=== PATIENT | female | born 1955 | race Caucasian/White ===

== ENCOUNTER 2017-07-24 12:41 | Observation (INO) ==
[2017-07-24 13:44] LABS: Basophils % 0.5 %; Eosinophils # 0.1 K/mcL (0.0-0.6); Eosinophils % 1.6 %; Hemoglobin 14.7 g/dL (11.5-15.4); Immature Granulocytes % 0.3 % (0-4); Lymphocytes # 1.7 K/mcL (0.6-4.6); Lymphocytes % 26.1 %; Mean Corpuscular HGB Conc 33.4 g/dL (31.6-35.5); Mean Corpuscular Hemoglobin 30.2 pg (28.0-33.3); Mean Corpuscular Volume 90.3 fL (83.0-100.0); Mean Platelet Volume 9.4 fL (9.4-12.4); Monocytes # 0.4 K/mcL (0.0-1.3); Monocytes % 6.5 %; Neutrophils # 4.2 K/mcL (1.6-8.9); Platelet Count 297 K/mcL (140-400); Red Blood Count 4.87 M/mcL (3.82-4.97); Red Cell Distribution Width 12.7 % (11.5-14.5)
--- NOTE | 2017-07-24 13:47 | Emergency Department Note ---
Disposition Clinical Impression: Vertigo Chest pain Qualifiers: Chest pain type: unspecified Qualified Code(s): R07.9 - Chest pain, unspecified Disposition: Admitted As Inpatient Condition: Fair Referrals: Em Hector MD [Primary Care Provider] - Forms: ED Satisfaction Letter Time of Disposition: 18:07 General Adult HPI - General Chief complaint: ED Dizziness Stated complaint: dizziness, weight-loss, multiple complaints Time Seen by Provider: 07/24/17 12:52 Source: patient, family Limitations: no limitations Nursing Notes Reviewed: Yes Vital Signs Reviewed: Yes - History of Present Illness HPI Narrative: Presents with complaints of dizziness and chest pain. The dizziness has both lightheadedness and vertigo symptoms and has been present intermittently for the last several months and she did have a time 2 weeks ago when she had difficult time with getting words out but she denies any localized numbness or weakness of the extremities, facial droop or confusion. She does not have any difficulty speaking currently or any slurred speech currently. She also had a one-hour constant heartburn symptoms last night with associated dyspnea but no diaphoresis. No radiation, pleuritic aspect, exertional component. No pain or swelling of the lower extremities. She has had rhinorrhea and cough for the last several months. I did review the previous record. No new blurred vision. No fever. No blood in the urine or stool. No skin rash or bruising of the skin. Pain Scale: 10 - Related Data Home Medications Medication Instructions Recorded Confirmed Albuterol Sulfate [Ventolin Hfa] 1 - 2 puff IH Q4-6H PRN 07/24/17 07/24/17 Aspirin 325 mg PO DAILY 07/24/17 07/24/17 Atorvastatin Calcium [Lipitor] 80 mg PO HS 07/24/17 07/24/17 Citalopram Hydrobromide [Celexa] 40 mg PO DAILY 07/24/17 07/24/17 Famotidine [Pepcid] 20 mg PO BID 07/24/17 07/24/17 Gabapentin [Neurontin] 400 mg PO TID 07/24/17 07/24/17 Metformin HCl [Glucophage] 1,000 mg PO BID 07/24/17 07/24/17 Metoprolol [Lopressor] 25 mg PO BID 07/24/17 07/24/17 Allergies Allergy/AdvReac Type Severity Reaction Status Date / Time sulfamethoxazole Allergy Hives Verified 07/24/17 12:49 [From Bactrim] trimethoprim [From Bactrim] Allergy Hives Verified 07/24/17 12:49 All systems ED: reviewed and negative except as stated. Review of Systems: As Per HPI Past Medical History - Past Medical History Medical history: Reports: coronary artery disease, diabetes, hyperlipidemia, hypertension Psychiatric history: Reports: no psych history - Social History Smoking Status: Former smoker Smokeless Tobacco Status: No Alcohol use: Reports: none Drug use: Reports: none Physical Exam CONSTITUTIONAL: Well-appearing; well-nourished; A&O X3, in no apparent distress HEAD: Normocephalic; atraumatic. EYES: PERRL, EOMI, no scleral icterus NOSE: The nose is normal in appearance without rhinorrhea NECK: Supple without rigidity, no ORIANA RESP: Normal chest excursion with respiration; breath sounds clear and equal bilaterally; no wheezes, rhonchi, or rales CARD: Regular rhythm, without murmurs, rub or gallop ABD: Non-distended; non-tender, soft, without rigidity, rebound or guarding SKIN: Normal for age and race; warm and dry; no apparent lesions, no rash NEUROLOGICAL: Patient is alert and oriented times three. Cranial nerves III- XII are intact. Sensory and motor functions are intact. Strength is 5/5 for flexion and extension in all 4 extremities. Finger to nose testing is equal and normal bilaterally. Stroke scale is 0 - General Limitations: no limitations Course Vital Signs Temperature 97.4 F L 07/24/17 12:43 Pulse Rate 83 07/24/17 12:43 Respiratory Rate 18 07/24/17 12:43 Blood Pressure 172/105 07/24/17 12:43 O2 Sat by Pulse Oximetry 97 07/24/17 12:43 Temperature 97.4 F L 07/24/17 12:43 Pulse Rate 66 07/24/17 14:27 Respiratory Rate 13 07/24/17 14:27 Blood Pressure 116/73 07/24/17 14:27 O2 Sat by Pulse Oximetry 95 07/24/17 14:27 Oxygen Delivery Oxygen Delivery Room Air Medical Decision Making - MDM Narrative Medical decision making narrative: Patient has a history of CABG and with her heartburn symptoms last night with associated dyspnea and this is concerning for angina/ACS and the patient will be admitted. Additionally she did have vertigo symptoms with difficulty speaking several weeks ago and does need further evaluation for a CVA. Test results are pending. I did review the patient's EKG which shows normal sinus rhythm with a rate of 67 without acute ischemic change. Other test results are pending. 1350 I do have 2 concerns and even with the negative head CT I am still concerned about possibility of stroke with the patient's vertiginous dizziness as well as difficulty speaking and having slurred speech and in addition she has had intermittent heartburn symptoms and with a history of CABG she will need to be further evaluated for cardiac etiology. I did discuss further with the hospitalist who accepted the patient for admission. I did see her again just a few minutes ago and she is nontoxic in appearance at this time. 1806 - Medical Records Medical records reviewed: Yes I reviewed the patient's medical records. - Lab Data Lab results reviewed: Yes I reviewed the patient's lab results. Result diagrams: 07/24/17 13:31 07/24/17 13:31 Lab Results 07/24/17 07/24/17 07/24/17 Range/Units 13:31 13:31 13:31 WBC 6.4 (4.3-11.1) K/mcL RBC 4.87 (3.82-4.97) M/mcL Hgb 14.7 (11.5-15.4) g/dL Hct 44.0 (35.3-44.9) % MCV 90.3 (83.0-100.0) fL MCH 30.2 (28.0-33.3) pg MCHC 33.4 (31.6-35.5) g/dL RDW 12.7 (11.5-14.5) % Plt Count 297 (140-400) K/mcL MPV 9.4 (9.4-12.4) fL Immature Gran % 0.3 (0-4) % Seg Neutrophils % 65.0 % Lymphocytes % 26.1 % Monocytes % 6.5 % Eosinophils % 1.6 % Basophils % 0.5 % Neutrophils # 4.2 (1.6-8.9) K/mcL Lymphocytes # 1.7 (0.6-4.6) K/mcL Monocytes # 0.4 (0.0-1.3) K/mcL Eosinophils # 0.1 (0.0-0.6) K/mcL Basophils # 0.0 (0.0-0.2) K/mcL Sodium 135 L (136-145) mEq/L Potassium 4.7 (3.5-5.1) mEq/L Chloride 100 (98-107) mEq/L Carbon Dioxide 27 (23-29) mEq/L BUN 13 (8-23) mg/dL Creatinine 0.79 (0.60-1.20) mg/dL Est GFR ( Amer) > 60 (> 60) Est GFR (Non-Af Amer) > 60 (> 60) BUN/Creatinine Ratio 16 (6-26) Glucose 161 H (70-105) mg/dL Calculated Osmolality 284 (280-300) Calcium 10.5 H (8.6-10.3) mg/dL Troponin I < 0.03 (< 0.04) ng/mL Urine Color (Yellow) Urine Clarity (Clear) Urine pH (5.0-8.0) pH Units Ur Specific [place] (1.010-1.025) Urine Protein (Neg-Trace) mg/dL Urine Glucose (UA) (Normal) mg/dL Urine Ketones (Negative) mg/dL Urine Blood (Negative) Urine Nitrite (Negative) Urine Bilirubin (Negative) Urine Urobilinogen (Normal) mg/dL Ur Leukocyte Esterase (Negative) Urine Microscopic RBC (0-3) per hpf Urine Microscopic WBC (0-3) per hpf Ur Squamous Epith Cells (None-Few) per lpf Urine Bacteria (None-Few) per hpf Hyaline Casts (None-Few) per lpf Ur Culture Indicated? (NO) 07/24/17 Range/Units 13:41 WBC (4.3-11.1) K/mcL RBC (3.82-4.97) M/mcL Hgb (11.5-15.4) g/dL Hct (35.3-44.9) % MCV (83.0-100.0) fL MCH (28.0-33.3) pg MCHC (31.6-35.5) g/dL RDW (11.5-14.5) % Plt Count (140-400) K/mcL MPV (9.4-12.4) fL Immature Gran % (0-4) % Seg Neutrophils % % Lymphocytes % % Monocytes % % Eosinophils % % Basophils % % Neutrophils # (1.6-8.9) K/mcL Lymphocytes # (0.6-4.6) K/mcL Monocytes # (0.0-1.3) K/mcL Eosinophils # (0.0-0.6) K/mcL Basophils # (0.0-0.2) K/mcL Sodium (136-145) mEq/L Potassium (3.5-5.1) mEq/L Chloride (98-107) mEq/L Carbon Dioxide (23-29) mEq/L BUN (8-23) mg/dL Creatinine (0.60-1.20) mg/dL Est GFR ( Amer) (> 60) Est GFR (Non-Af Amer) (> 60) BUN/Creatinine Ratio (6-26) Glucose (70-105) mg/dL Calculated Osmolality (280-300) Calcium (8.6-10.3) mg/dL Troponin I (< 0.04) ng/mL Urine Color Yellow (Yellow) Urine Clarity Clear (Clear) Urine pH 5.5 (5.0-8.0) pH Units Ur Specific [place] 1.025 (1.010-1.025) Urine Protein 30 H (Neg-Trace) mg/dL Urine Glucose (UA) Normal (Normal) mg/dL Urine Ketones Negative (Negative) mg/dL Urine Blood Negative (Negative) Urine Nitrite Negative (Negative) Urine Bilirubin Negative (Negative) Urine Urobilinogen Normal (Normal) mg/dL Ur Leukocyte Esterase Negative (Negative) Urine Microscopic RBC 5-15 H (0-3) per hpf Urine Microscopic WBC 3-5 H (0-3) per hpf Ur Squamous Epith Cells Many H (None-Few) per lpf Urine Bacteria None Seen (None-Few) per hpf Hyaline Casts None Seen (None-Few) per lpf Ur Culture Indicated? NO (NO) - Radiology Data Radiology results reviewed: Yes I reviewed the patient's radiology results. Critical Care Time Critical Care Time: No
[2017-07-24 14:01] LABS: BUN/Creatinine Ratio 16 (6-26); Blood Urea Nitrogen 13 mg/dL (8-23); Calcium 10.5 mg/dL (8.6-10.3); Carbon Dioxide 27 mEq/L (23-29); Chloride 100 mEq/L (98-107); Glucose 161 mg/dL (70-105); Osmolality,Calculated 284 (280-300); Potassium 4.7 mEq/L (3.5-5.1); Sodium 135 mEq/L (136-145); eGFR For Non-African Americans > 60 (> 60)
[2017-07-24 14:01] LABS: Bilirubin,Urine Negative (Negative); Blood,Urine Negative (Negative); Clarity,Urine Clear (Clear); Color,Urine Yellow (Yellow); Glucose,Urine (UA) Normal (Normal); Ketones,Urine Negative (Negative); Leukocyte Esterase,Urine Negative (Negative); Nitrite,Urine Negative (Negative); PH,Urine 5.5 pH Units (5.0-8.0); Protein,Urine 30 mg/dL (Neg-Trace); Specific Gravity,Urine 1.025 (1.010-1.025); Urobilinogen,Urine Normal (Normal)
[2017-07-24 14:03] LABS: Bacteria,Urine None Seen per hpf (None-Few); Hyaline Casts,Urine None Seen per lpf (None-Few); Squamous Epithelial Cell,Urine Many per lpf (None-Few)
[2017-07-24] MEDS ORDERED: Dextrose Gel 15 GM/37.5 ML TUBE PO PRN ×2 (18:34)
[2017-07-24] MEDS ORDERED: *HR* Dextrose 50 % in Water (Syg) 50 ML SYRINGE IVP PRN (18:34)
[2017-07-24] MEDS ORDERED: D5% in Water 1,000 ML IVC PRN (18:34)
[2017-07-24] MEDS ORDERED: Naloxone 0.4 MG/ML INJ IVP PRN (18:40)
--- NOTE | 2017-07-24 18:50 | Internal Med History&Physical ---
Date of Encounter: 07/24/17 Time of Encounter: 18:48 Assessment and Plan (1) CVA (cerebral vascular accident) Current visit: Yes Status: Acute Admitting as observation for a concern for a CVA. She presents with dizziness intermittently over the last year but reports that it is getting much worse over the last 2-weeks. Additionally, she is also having gait ataxia and drifting to the right with ambulation. PLAN: -Stat CT no hemorrhage, mass effect, acute ischemia or midline shift -MRI head/brain without contrast stat d/t concern for CVA -BL Carotid doppler -TTE now -Continue ASA -Continue Statin -CBC, BMP/CMP, Lipid panel in am -NIHSS now -Neuro checks q4hrs/per protocol -Orthostatic vital signs -Consult Neurology- spoke with Dr. Ramírez who has agreed to see the patient and has recommended we get a TSH, FOLATE, AND B12 -Heparin 5000units SC BID -CARDIAC/DIABETIC DIET Qualifiers: CVA mechanism: unspecified Qualified Code(s): I63.9 - Cerebral infarction, unspecified (2) Chest pain Current visit: Yes Status: Resolved Reports a burning sensation describing it as heartburn. She states that it lasted approximately 1 hour and resolved on it's own, however she was short of breath during this event. She also reports that this is the same sensation she has during her last [place]. H/o CAD, [place], CABG "08", HLD, HTN. D/t hx I will continue to r/o [place] PLAN: - cardiac enzymes x 2 q 6 hr - EKG NSR, no ST elevation or depression - ASA 325mg daily - O2 by NC to keep SpO2 greater than 92% - Urine toxic screen - CBCD, BMP in AM - Fasting lipids - Resume home medications - Heparin 5000 U SQ BID - 2D Echo - hold off on cardio consult until TTE and troponins result Qualifiers: Chest pain type: unspecified Qualified Code(s): R07.9 - Chest pain, unspecified (3) Vertigo Current visit: Yes Status: Acute Continues to have dizziness and lightheadedness Vertigo worse with position change, but patient also having gait ataxia This is concerning for a cerebellar infarct CT of the head is negative, no prior h/o CVA -Meclizine -see plan above (4) CAD (coronary artery disease) Current visit: Yes Status: Acute Continue ASA, and BB Tele Qualifiers: Coronary Disease-Associated Artery/Lesion type: bypass graft [place] vs. transplanted heart: [place] heart Associated angina: angina presence unspecified Qualified Code(s): I25.810 - Atherosclerosis of coronary artery bypass graft(s) without angina pectoris (5) DM (diabetes mellitus) Current visit: Yes Status: Acute sliding scale insulin coverage diabetic/cardiac diet Qualifiers: Diabetes mellitus type: type 2 Diabetes mellitus complication status: without complication Diabetes mellitus fdc insulin use: without predatory animal exterminator use Qualified Code(s): E11.9 - Type 2 diabetes mellitus without complications (6) HLD (hyperlipidemia) Current visit: Yes Status: Acute Qualifiers: Hyperlipidemia type: unspecified Qualified Code(s): E78.5 - Hyperlipidemia , unspecified (7) HTN (hypertension) Current visit: Yes Status: Acute stable Qualifiers: Hypertension type: essential hypertension Qualified Code(s): I10 - Essential (primary) hypertension (8) DVT prophylaxis Current visit: Yes Status: Acute heparin 5000 units SC BID Internal Medicine - H&P: HPI Chief complaint: DIZZINESS, SHORTNESS OF BREATH, GAIT ABNORMALITIES Admitted From: Home Plans for Post Hospital Care: Home History of present illness: Ms. Varghese is a 62 year old female with a PMH of CABG, coronary artery disease, diabetes, hyperlipidemia, and hypertension. She presents to [facility] today with c/ o dizziness and chest pain. She reports that she has been experiencing vertigo symptoms intermittently since May of 2017. In addition to that she is also reporting some gain ataxia over the last 2-weeks. She is reporting drifting to the right when she ambulates. Also she notes that 2-weeks ago she had difficulty with finding words and losing her train of thought. She has never had a CVA and she denies any associated slurred speech, facial droop, or unilateral weakness. She does report some heartburn symptoms last night lasting approximately 1 hour and while having the heartburn she was also experiencing shortness of breath. She denies any radiation, pleuritic aspect, or exertional component. Additionally, she denies any ill contacts, constitutional symptoms, abdominal pain, extremity swelling/pain, or unusual bruising. Past Med Surg Social Fam HX - Past Medical History Medical history: coronary artery disease, diabetes, hyperlipidemia, hypertension Psychiatric history: no psych history - Social History Smoking Status: Former smoker Smokeless Tobacco Status: No Alcohol use: none Drug use: none - Additional Family History Additional family history: noncontributory Internal Medicine - H&P: Meds Albuterol Sulfate [Ventolin Hfa] 1 - 2 puff IH Q4-6H PRN 07/24/17 [History] Aspirin 325 mg PO DAILY 07/24/17 [History] Atorvastatin Calcium [Lipitor] 80 mg PO HS 07/24/17 [History] Citalopram Hydrobromide [Celexa] 40 mg PO DAILY 07/24/17 [History] Famotidine [Pepcid] 20 mg PO BID 07/24/17 [History] Gabapentin [Neurontin] 400 mg PO TID 07/24/17 [History] Metformin HCl [Glucophage] 1,000 mg PO BID 07/24/17 [History] Metoprolol [Lopressor] 25 mg PO BID 07/24/17 [History] 3 Allergy/AdvReac Type Severity Reaction Status Date / Time sulfamethoxazole Allergy Hives Verified 07/24/17 12:49 [From Bactrim] trimethoprim [From Bactrim] Allergy Hives Verified 07/24/17 12:49 All Systems PM: A 10-system review of systems was performed and is negative for pertinent findings except as documented above in the HPI. - Constitutional Constitutional: falls, weakness, weight loss, no chills, no fever(s) - EENT Eyes: blurry vision Nose, mouth and throat: sinus pressure, no sinus pain - Cardiovascular Cardiovascular ROS IM: chest pain (DENIES PAIN; DESCRIBES HEARTBURN WHICH IS THE SENSATION SHE HAD BEFORE HER LAST [place]), lightheadedness, no edema, no irregular heart rhythm, no orthopnea, no palpitations, no syncope - Respiratory Respiratory: no cough Additional comments: SHORTNESS OF BREATH LASTING APPROXIMATELY 1 HOUR - Gastrointestinal Gastrointestinal: vomiting (reports that she ), no abdominal pain, no diarrhea, no nausea - Genitourinary Genitourinary: no change in urinary stream, no dysuria, no flank pain, no hematuria - Musculoskeletal Musculoskeletal ROS IM: no numbness, no tingling - Integumentary Integumentary IM: no rash, no unusual bruising - Neurological Neurological ROS: as per HPI, abnormal gait, abnormal speech, confusion, disequilibrium, dizziness, headache(s), lack of coordination, vertigo, weakness - Constitutional Vitals: Temp Pulse Resp BP Pulse Ox 97.4 F L 73 22 138/66 96 07/24/17 12:43 07/24/17 18:29 07/24/17 18:29 07/24/17 18:29 07/24/17 18:29 General appearance: Present: cooperative, A&O X 3, no acute distress, answers questions appropriately - Head Head exam: Present: atraumatic, normocephalic - Eye Eye exam: Present: PERRL Pupils: Present: PERRL - Neck Neck exam general surgery: Present: supple, trachea midline. Absent: lymphadenopathy - Respiratory Respiratory exam: Present: CTAB. Absent: accessory muscle use, rales, rhonchi, wheezes - Cardiovascular Cardiovascular exam: Present: RRR, +S1, +S2. Absent: diastolic murmur, gallop, rubs, systolic murmur - GI/Abdominal GI/Abdominal exam: Present: normal bowel sounds, soft, no peritoneal signs. Absent: distended, tenderness - Extremities Exam Extremities exam: Present: warm, radial pulses palpable and symmetrical. Absent : calf tenderness, cyanotic, pedal edema - Neurological Exam Neurological exam: Present: abnormal gait, alert, oriented X3, strengths equal and symetr throughout. Absent: pronater drift, facial droop, speech deficit - Expanded Neurological Exam Neurological exam expanded: Absent: expressive aphasia, receptive aphasia Patient oriented to: Present: person, place Speech: Present: fluid speech. Absent: slurred Cranial Nerves: EOM's intact PM: Normal, gag reflex PM: Normal, nystagmus PM: Normal, tongue deviation PM: Normal Cerebellar function: finger to nose: Normal, heel to méndez: Normal, Romberg: Abnormal Right Upper motor neuron: Babinski sign: Normal, Osbaldo neglect: Normal, pronator drift : Normal, sensory extinction: Normal Neuro motor strength exam: LUE: 5, RUE: 5, LLE: 5, RLE: 5 Coma Scale Eye Opening: Spontaneous Coma Scale Motor Response: Obeys Commands Coma Scale Verbal Response: Oriented Coma Scale Total: 15 - Skin Skin exam: Present: dry, intact Internal Med - H&P Results - Labs CBC & Chem 7: 07/24/17 13:31 07/24/17 13:31 Labs: Short CBC 07/24/17 Range/Units 13:31 WBC 6.4 (4.3-11.1) K/mcL Hgb 14.7 (11.5-15.4) g/dL Hct 44.0 (35.3-44.9) % Plt Count 297 (140-400) K/mcL Neutrophils # 4.2 (1.6-8.9) K/mcL BMP 07/24/17 13:31 Sodium 135 L Potassium 4.7 Chloride 100 Carbon Dioxide 27 BUN 13 Creatinine 0.79 Glucose 161 H Calcium 10.5 H Cardiac Enzymes 07/24/17 Range/Units 13:31 Troponin I < 0.03 (< 0.04) ng/mL Urine 07/24/17 Range/Units 13:41 Urine Color Yellow (Yellow) Urine Clarity Clear (Clear) Urine pH 5.5 (5.0-8.0) pH Units Ur Specific [place] 1.025 (1.010-1.025) Urine Protein 30 H (Neg-Trace) mg/dL Urine Glucose (UA) Normal (Normal) mg/dL - EKG Data -: EKG Interpreted by Myself EKG shows normal: sinus rhythm Rate: normal - EKG Data Prior EKG available for review: no Interpretation IM: normal EKG EKG comments: NSR with a rate of 67, no ST elevation or depression 07/24/17 18:55 - Impressions ITS Impressions Chest X-Ray 07/24/17 13:18 IMPRESSION: Calcific atherosclerotic disease aorta. No acute disease. D/ / Michael Marie / Michael Marie Interpreting Provider: Michael Marie Head CT 07/24/17 13:18 IMPRESSION: No acute intracranial abnormality. Diffuse atrophic changes with findings suggesting chronic microvascular ischemia D/ / Cristian Enrique MD / Cristian Enrique MD Interpreting Provider: Cristian Enrique MD
[2017-07-24 19:11] LABS: Hemoglobin A1C 6.8 %
--- NOTE | 2017-07-24 19:27 | Event Note ---
Date of Encounter: 07/24/17 Time of Encounter: 19:21 Patient seen and examined. Agree with the H&P as written by Raf Newsome NP. 62 year old female with a PMH of CABG, coronary artery disease, diabetes, hyperlipidemia, and hypertension. Here with dizziness complaints. Drifting to the right with ambulation. Reports trouble with findings words a couple of weeks ago. Reports intermittent epigastric/chest discomfort for 1 hour and resolved. Work up including CT head is negative for acute findings. Laboratory work up unremarkable. Trops not elevated. Vitals stable. EKG with no ST or T wave acute changes. Will admit and order an MRI brain and rest of stroke work up and have neurology see the patient in the morning. Check A1c and lipid panel. Check TSH and Vit B12. Trend cardiac enzymes. check TTE. Keep on Tele.
[2017-07-24] MEDS: Ondansetron 4 MG/2 ML VIAL IVP PRN (20:47)
[2017-07-24] MEDS: Insulin LISPRO 300 UNITS/3 ML VIAL SQ SCH (21:12)
[2017-07-25] MEDS: Famotidine 20 MG TABLET PO SCH ×3 (00:09→18:08)
[2017-07-25] MEDS: Gabapentin 400 MG CAPSULE PO SCH ×4 (00:09→20:19)
[2017-07-25 00:39] LABS: Hematocrit 43.7 % (35.3-44.9); Hemoglobin 14.8 g/dL (11.5-15.4); Immature Platelets 3.5 % (1.1-6.1); Mean Corpuscular HGB Conc 33.9 g/dL (31.6-35.5); Mean Corpuscular Hemoglobin 30.6 pg (28.0-33.3); Mean Corpuscular Volume 90.3 fL (83.0-100.0); Mean Platelet Volume 9.4 fL (9.4-12.4); Red Blood Count 4.84 M/mcL (3.82-4.97); Red Cell Distribution Width 12.7 % (11.5-14.5)
[2017-07-25 01:00] LABS: BUN/Creatinine Ratio 20 (6-26); Blood Urea Nitrogen 15 mg/dL (8-23); Calcium 10.5 mg/dL (8.6-10.3); Carbon Dioxide 27 mEq/L (23-29); Chloride 99 mEq/L (98-107); Chol/HDL Ratio 11.4 (0-4.9); Cholesterol 319 mg/dL (< 200); Glucose 152 mg/dL (70-105); HDL Cholesterol 28 mg/dL (40-59); LDL Cholesterol,Calculated 245 mg/dL (0-99); Osmolality,Calculated 284 (280-300); Potassium 4.5 mEq/L (3.5-5.1); Sodium 135 mEq/L (136-145); Triglycerides 232 mg/dL (< 150); eGFR For Non-African Americans > 60 (> 60)
[2017-07-25] MEDS: *HR* Heparin 5,000 UNIT/ML VIAL SQ SCH ×2 (05:48→18:08)
[2017-07-25] MEDS: Ondansetron 4 MG/2 ML VIAL IVP PRN (09:14)
[2017-07-25] MEDS: Insulin LISPRO 300 UNITS/3 ML VIAL SQ SCH ×4 (09:21→20:22)
[2017-07-25] MEDS ORDERED: *HR* Promethazine 25 MG/ML VIAL IVP ONE (12:34)
[2017-07-25] MEDS: Aspirin 325 MG TABLET PO SCH (13:25)
--- NOTE | 2017-07-25 15:11 | Internal Med Progress Note ---
Date of Encounter: 07/25/17 Time of Encounter: 15:08 - Assessment and plan (1) Dizziness Current Visit: Yes Status: Acute Assessment and plan: Patient presented to the emergency room with intermittent dizziness over the past year but getting worse over the past 2 weeks. She also reported tunnellike vision at times and her vision feels like it is swimming. She states she is having some gait dysfunction and drifting to the right with ambulation. Concern for a CVA Patient has a past medical history of CABG, CAD, diabetes mellitus, hyperlipidemia, and hypertension. CT of the head with no hemorrhage, mass effect, acute ischemia or midline shift MRI of the head and brain without contrast with no diffusion restriction to suggest acute infarct and no evidence of intracranial mass. There is diffuse parenchymal volume loss with apportionable sulk and ventricle enlargement and mid periventricular cerebral white matter T2/flare hyper intensity which is nonspecific but generally ascribes to sequela of chronic microvascular ischemia. No mass effect or midline shift. No evidence of an acute intracranial hemorrhage. The ventricles and sulcal are normal in size and configuration. The sellar/suprasellar regions appear unremarkable. The normal signal voids within the major intracranial vessels appear maintained Echocardiogram and carotid duplex imaging are ordered Continue aspirin, statin Follow lab work Cholesterol 319, triglycerides 232, LDL cholesterol 245, HDL cholesterol 28 Neuro checks every 4 hours as per protocol Orthostatic vital signs are negative TSH, folate, and vitamin B12 levels within normal parameters Neurology consult pending Heparin 5000 units subcutaneous twice a day Cardiac/diabetic diet (2) Chest pain Current Visit: Yes Status: Acute Assessment and plan: Patient was having burning sensation described as heartburn-like. She stated it lasted approximately one hour and resolved on its own. She stated she was short of breath during the event and she reported this as same since sensation as during her last [place]. History of CAD, [place], CABG in 2007, HLD, hypertension EKG normal sinus rhythm with no ST elevation depression, aspirin 325 mg daily Oxygen to maintain sats greater than 92% urine tox screen pending CBC within normal limits Sodium 135 Glucose 152 Triglycerides 232, cholesterol 319, LDL 245, HDL 46 Resume home medications Echocardiogram pending Patient currently pain free Qualifiers: Chest pain type: unspecified Qualified Code(s): R07.9 - Chest pain, unspecified (3) DM (diabetes mellitus) Current Visit: Yes Status: Chronic Assessment and plan: Sliding scale insulin coverage before meals and at bedtime Diabetic/cardiac diet Qualifiers: Diabetes mellitus type: type 2 Diabetes mellitus complication status: without complication Diabetes mellitus shelter insulin use: without assistant terminal manager use Qualified Code(s): E11.9 - Type 2 diabetes mellitus without complications (4) HTN (hypertension) Current Visit: Yes Status: Acute Qualifiers: Hypertension type: essential hypertension Qualified Code(s): I10 - Essential (primary) hypertension (5) HLD (hyperlipidemia) Current Visit: Yes Status: Acute Assessment and plan: Reviewed lipid panel with elevated cholesterol and low HDL Lipitor is on her home med list. Qualifiers: Hyperlipidemia type: unspecified Qualified Code(s): E78.5 - Hyperlipidemia , unspecified (6) DVT prophylaxis Current Visit: Yes Status: Acute Assessment and plan: Heparin subcutaneous (7) URI (upper respiratory infection) Current Visit: Yes Status: Acute Assessment and plan: Patient reports ongoing URI since with sinus pressure. We will check a respiratory infection panel Qualifiers: URI type: unspecified URI Qualified Code(s): J06.9 - Acute upper respiratory infection, unspecified - Subjective Interval history: Patient is sitting up in the bed eating her lunch. She states she is still dizzy and feels like the room is swimming. She states she has had dizziness intermittently over the past year that feels is getting worse over last 2 weeks. She also states she is having some difficulty with drifting to the right side with ambulation and she feels that her right side is a little weaker with some difficulty walking. Denies fever, chills, nausea, chest pain, changes in bowel or bladder. She states she has been treated off and on over the past couple months since for an upper respiratory infection at urgent care and doctor's office. - Constitutional Vitals: Temp Pulse Resp BP Pulse Ox 98.1 F 79 17 122/74 95 07/25/17 11:48 07/25/17 11:48 07/25/17 11:48 07/25/17 11:48 07/25/17 11:48 General appearance: Present: cooperative, A&O X 3, pleasant, answers questions appropriately - Head Head exam: Present: atraumatic, normocephalic - Eye Eye exam: Present: PERRL, conjuntiva pink, sclera anicteric. Absent: nystagmus Pupils: Present: PERRL Additional comments: Bilateral maxillary sinus discomfort to palpation - Neck Neck exam general surgery: Present: supple, trachea midline. Absent: lymphadenopathy - Respiratory Respiratory exam: Present: CTAB. Absent: accessory muscle use, chest wall tenderness, rales, rhonchi, wheezes - Cardiovascular Cardiovascular exam: Present: RRR, +S1, +S2. Absent: diastolic murmur, gallop, rubs, systolic murmur - GI/Abdominal GI/Abdominal exam: Present: normal bowel sounds, soft, no peritoneal signs. Absent: distended, tenderness - Extremities Exam Extremities exam: Present: warm, radial pulses palpable and symmetrical. Absent : calf tenderness, cyanotic, pedal edema - Neurological Exam Neurological exam: Present: alert, CN II-XII intact, oriented X3, no focal deficits. Absent: pronater drift, facial droop, speech deficit - Skin Skin exam: Present: dry, intact, normal color, warm Internal Medicine: Result - Labs CBC & Chem 7: 07/25/17 00:20 07/25/17 00:20 Labs: Short CBC 07/25/17 Range/Units 00:20 WBC 9.5 (4.3-11.1) K/mcL Hgb 14.8 (11.5-15.4) g/dL Hct 43.7 (35.3-44.9) % Plt Count 335 (140-400) K/mcL BMP 07/25/17 00:20 Sodium 135 L Potassium 4.5 Chloride 99 Carbon Dioxide 27 BUN 15 Creatinine 0.76 Glucose 152 H Calcium 10.5 H Cardiac Enzymes 07/24/17 07/25/17 07/25/17 Range/Units 18:52 00:20 06:38 Troponin I < 0.03 < 0.03 < 0.03 (< 0.04) ng/mL Consult Discharge Plan - Plan Referrals: Em Hector MD [Primary Care Provider] -
[2017-07-25] MEDS ORDERED: *HR* LORazepam 0.5 MG TABLET PO PRN (16:31)
[2017-07-25] MEDS ORDERED: methylPREDNISolone 125 MG/2 ML VIAL IVP ONE (16:32)
--- NOTE | 2017-07-25 16:36 | Event Note ---
Date of Encounter: 07/25/17 Time of Encounter: 16:35 Discussed with the neurologist and will add Ativan 0.5 at at bedtime by mouth, Solu-Medrol 60 mg 1 dose now and was seen 25 mg 3 times a day when necessary for dizziness. She may get out of bed and potential discharge tomorrow.
--- NOTE | 2017-07-25 16:55 | Neurology - Consult Note ---
Date of Encounter: 07/25/17 Time of Encounter: 16:55 Assessment and Plan (1) Vertigo Current Visit: Yes Status: Acute (2) Dizziness Current Visit: Yes Status: Acute This patient is complaining of this dizziness lightheadedness as well as tunnel vision could be having a migrainous aura especially when MRI of the brain is negative for any acute stroke in particularly no evidence of any brainstem infarction at the same time on neurological examination I did not see any evidence of focal sign to be suggestive of a stroke. She did have some mastoid effusion and that perhaps could be causing dizziness and fact can cause difficulty with the balance and vertiginous symptoms. May be treated accordingly with some anti-histamine. sHe may continue on an aspirin. Suggest CT angiogram of the head to make sure there is no evidence of any posterior circulation abnormalities. Symptoms seems to be more concerning of peripheral than central. Patient may benefit from IV fluids as well as meclizine on an as needed basis History of Present Illness HPI: Ms. Varghese is a 62 year old female with PMH of CABG, coronary artery disease, diabetes, hyperlipidemia, and hypertension. She admitted today with c/o dizziness and chest pain. She reports that she has been experiencing vertigo symptoms intermittently since May of 2017. she is also reporting some ataxia over the last 2-weeks. She is reporting drifting to the right when she ambulates. she had some shortness of breath. she denies any ill contacts, constitutional symptoms, abdominal pain, extremity swelling/pain, or unusual bruising. She is also complaining of some headache and tunnel vision though she denies any vision loss or any double vision but complaining of these visual symptoms off and on she has an history of headaches and also complaining of this vertiginous feeling predominantly positional in nature. No focal motor weakness Past Med Surg Social Fam HX - Past Medical History Medical history: coronary artery disease, diabetes, hyperlipidemia, hypertension Psychiatric history: no psych history - Social History Smoking Status: Former smoker Smokeless Tobacco Status: No Alcohol use: none Drug use: none - Family History Father Hx Family Cardiac Disorders: Yes (SC, HTN) Hx Family Respiratory Disorders: No Hx Family Cancer: No Hx Family GI Disorders: No Hx Family Genitourinary Disorders: No Hx Family Endocrine Disorder: No Hx Family Musculoskeletal Disorders: No Hx Family Neuromuscular Disorders: No Hx Family Neurologic Disorders: No Hx Family HEENT Disorders: No Hx Family Autoimmune Disorders: No Hx Family Reproductive Disorders: No Hx Family Psychosocial Disorders: No Hx Family Medical Disorders: No Sister Age at : 57 Cause of : SC Hx Family Cardiac Disorders: Yes (SC) Hx Family Respiratory Disorders: Yes (COPD) Hx Family Cancer: No Hx Family GI Disorders: No Hx Family Genitourinary Disorders: No Hx Family Endocrine Disorder: No Hx Family Musculoskeletal Disorders: No Hx Family Neuromuscular Disorders: No Hx Family Neurologic Disorders: No Hx Family HEENT Disorders: No Hx Family Autoimmune Disorders: No Hx Family Reproductive Disorders: No Hx Family Psychosocial Disorders: No Hx Family Medical Disorders: No Medications and Allergies Albuterol Sulfate [Ventolin Hfa] 1 - 2 puff IH Q4-6H PRN 07/24/17 [History] Aspirin 325 mg PO DAILY 07/24/17 [History] Atorvastatin Calcium [Lipitor] 80 mg PO HS 07/24/17 [History] Citalopram Hydrobromide [Celexa] 40 mg PO DAILY 07/24/17 [History] Famotidine [Pepcid] 20 mg PO BID 07/24/17 [History] Gabapentin [Neurontin] 400 mg PO TID 07/24/17 [History] Metformin HCl [Glucophage] 1,000 mg PO BID 07/24/17 [History] Metoprolol [Lopressor] 25 mg PO BID 07/24/17 [History] 3 Allergy/AdvReac Type Severity Reaction Status Date / Time sulfamethoxazole Allergy Hives Verified 07/24/17 12:49 [From Bactrim] trimethoprim [From Bactrim] Allergy Hives Verified 07/24/17 12:49 All Systems: The remainder of the systems were reviewed and are negative Physical Examination - Vital Signs Vital Signs: Initial Vital Signs Temp Pulse Resp BP Pulse Ox 97.4 F L 83 18 172/105 97 07/24/17 12:43 07/24/17 12:43 07/24/17 12:43 07/24/17 12:43 07/24/17 12:43 - Constitutional General appearance: comfortable - Neurologic Sensorimotor examination: intact Detailed motor examination: full strength in all major muscle groups Motor examination - right side: 5/5: deltoids, biceps, triceps, wrist flexion, wrist extension, timber sizer operator, hip flexors, tibialis Anterior, quadriceps, toe extension (EHL), plantarflexion Motor examination - left side: 5/5: deltoids, biceps, triceps, wrist flexion, wrist extension, hip flexors, timber sizer operator, quadriceps, tibialis Anterior, toe extension (EHL), plantarflexion Reflex and gait examination: intact Reflexes: Biceps: 1+, Triceps: 1+, Brachioradialis: 1+, Patella: 1+, Achilles: 1 + Mental Status Examination: awake, alert, oriented to person, oriented to place, oriented to time, follows commands appropriately, answers questions appropriately, no agnosia, no aphasia, no aproxia Cranial nerve examination: PERRL, EOMI, visual du intact, corneal reflexes brisk symmetrically, sensory to face intact, mastication intact, no facial asymmetry is present, no dysarthria, hearing is intact symmetrically, soft palate elevates bilaterally upon phonation, gag reflex intact, flexes SCM and trapezius muscles symmetrically with full power, tongue protrudes midline, no atrophy or facial fasiculations present Cerebellar examination: no dysmetria, performs finger to nose and heel to méndez symmetrically without ataxia, no gait ataxia, no truncal ataxia, no difficulty with rapid alternating movements Results - Laboratory Findings CBC and BMP: 07/25/17 00:20 07/25/17 00:20 Abnormal lab findings: Abnormal lab results Sodium 135 mEq/L (136-145) L 07/25/17 00:20 Glucose 152 mg/dL (70-105) H 07/25/17 00:20 POC Glucose 141 (58-89) H 07/24/17 20:54 Hemoglobin A1c 6.8 % (-5.6) H 07/24/17 18:52 Calcium 10.5 mg/dL (8.6-10.3) H 07/25/17 00:20 Triglycerides 232 mg/dL (< 150) H 07/25/17 00:20 Cholesterol 319 mg/dL (< 200) H 07/25/17 00:20 LDL Cholesterol, Calc 245 mg/dL (0-99) H 07/25/17 00:20 VLDL Cholesterol, Calc 46 mg/dL (< 31) H 07/25/17 00:20 HDL Cholesterol 28 mg/dL (40-59) L 07/25/17 00:20 Cholesterol/HDL Ratio 11.4 (0-4.9) H 07/25/17 00:20 Urine Protein 30 mg/dL (Neg-Trace) H 07/24/17 13:41 Urine Microscopic RBC 5-15 per hpf (0-3) H 07/24/17 13:41 Urine Microscopic WBC 3-5 per hpf (0-3) H 07/24/17 13:41 Ur Squamous Epith Cells Many per lpf (None-Few) H 07/24/17 13:41 - Diagnostic Findings Additional findings: MRI of the brain showed No acute intracranial abnormality. 2. Diffuse parenchymal volume loss with mild chronic white matter microvascular ischemic changes. 3. Left mastoid effusion. Consult Discharge Plan - Plan Referrals: Em Hector MD [Primary Care Provider] -
[2017-07-26] MEDS: Ondansetron 4 MG/2 ML VIAL IVP PRN (03:58)
[2017-07-26] MEDS: *HR* Heparin 5,000 UNIT/ML VIAL SQ SCH (05:42)
[2017-07-26] MEDS: Insulin LISPRO 300 UNITS/3 ML VIAL SQ SCH ×2 (08:28→12:36)
[2017-07-26] MEDS: Aspirin 325 MG TABLET PO SCH (08:28)
[2017-07-26] MEDS: Gabapentin 400 MG CAPSULE PO SCH (08:28)
[2017-07-26] MEDS: Famotidine 20 MG TABLET PO SCH (08:28)
[2017-07-26] MEDS ORDERED: 0.9 % Sodium Chloride 1,000 ML IVC SCH (08:30)
[2017-07-26 12:38] LABS: Adenovirus Not Detected (Not Detect); Bordetella Pertussis Not Detected (Not Detect); Chlamydophila pneumoniae Not Detected (Not Detect); Coronavirus 229E Not Detected (Not Detect); Coronavirus HKU1 Not Detected (Not Detect); Coronavirus NL63 Not Detected (Not Detect); Coronavirus OC43 Not Detected (Not Detect); Human Metapneumovirus Not Detected (Not Detect); Human Rhinovirus/Enterovirus Not Detected (Not Detect); Influenza A Subtype 2009 H1 Not Detected (Not Detect); Influenza A Untypeable Not Detected (Not Detect); Influenza B Not Detected (Not Detect); Mycoplasma pneumoniae Not Detected (Not Detect); Parainfluenza Virus 1 Not Detected (Not Detect); Parainfluenza Virus 2 Not Detected (Not Detect); Parainfluenza Virus 3 Not Detected (Not Detect); Parainfluenza Virus 4 Not Detected (Not Detect); Respiratory Syncytial Virus Not Detected (Not Detect)
--- NOTE | 2017-07-26 14:29 | Neurology Progress Note ---
Date of Encounter: 07/26/17 Time of Encounter: 14:27 Assessment and Plan (1) Vertigo Current Visit: Yes Status: Acute (2) Dizziness Current Visit: Yes Status: Acute Patient's symptoms are likely peripheral in nature imaging studies be negative especially no stenosis anterior and posterior circulation. Is possible it could be a migrainous phenomenon. She may be tried on amitriptyline 25 mg at bedtime as a preventive agent. Also suggested increased ambulation she should be up in the chair and also should be ambulating otherwise she would remain dizzy. From neurology standpoint patient is stable no clinical or imaging abnormalities to be suggestive of a stroke or TIA. Increased fluid intake and patient could be discharged from neurology standpoint Subjective Interval history: Stable no other new symptoms or problems to complaining of some tunnel vision off and on and some dizziness , laying down in the dark room not been ambulating. MRI of the brain is negative except some mastoid disease. CT angiogram negative for any critical stenosis in the anterior posterior circulation. Objective - Constitutional Vitals: Temp Pulse Resp BP Pulse Ox 97.8 F 64 15 126/82 96 07/26/17 11:56 07/26/17 11:56 07/26/17 11:56 07/26/17 11:56 07/26/17 11:56 - Neurological Exam Sensorimotor examination: Present: intact Motor Examination: Present: full strength in all major muscle groups Motor examination - left side: 5/5: deltoids, biceps, triceps, wrist flexion, wrist extension, hip flexors, brooch and bracelet maker, quadriceps, tibialis Anterior, toe extension (EHL), plantarflexion Reflex and gait examination: intact Mental Status Examination: Present: awake, alert, oriented to person, oriented to place, oriented to time, follows commands appropriately, answers questions appropriately, no agnosia, no aphasia, no aproxia Cranial nerve examination: Present: PERRL, EOMI, visual du intact, corneal reflexes brisk symmetrically, sensory to face intact, mastication intact, no facial asymmetry is present, no dysarthria, hearing is intact symmetrically, soft palate elevates bilaterally upon phonation, gag reflex intact, flexes SCM and trapezius muscles symmetrically with full power, tongue protrudes midline, no atrophy or facial fasiculations present Cerebellar examination: Present: no dysmetria, performs finger to nose and heel to méndez symmetrically without ataxia, no gait ataxia, no truncal ataxia, no difficulty with rapid alternating movements Results - Laboratory Findings CBC and BMP: 07/25/17 00:20 07/25/17 00:20 Abnormal lab findings: Abnormal lab results Sodium 135 mEq/L (136-145) L 07/25/17 00:20 Glucose 152 mg/dL (70-105) H 07/25/17 00:20 POC Glucose 276 (58-89) H 07/25/17 20:19 Hemoglobin A1c 6.8 % (-5.6) H 07/24/17 18:52 Calcium 10.5 mg/dL (8.6-10.3) H 07/25/17 00:20 Triglycerides 232 mg/dL (< 150) H 07/25/17 00:20 Cholesterol 319 mg/dL (< 200) H 07/25/17 00:20 LDL Cholesterol, Calc 245 mg/dL (0-99) H 07/25/17 00:20 VLDL Cholesterol, Calc 46 mg/dL (< 31) H 07/25/17 00:20 HDL Cholesterol 28 mg/dL (40-59) L 07/25/17 00:20 Cholesterol/HDL Ratio 11.4 (0-4.9) H 07/25/17 00:20 Urine Protein 30 mg/dL (Neg-Trace) H 07/24/17 13:41 Urine Microscopic RBC 5-15 per hpf (0-3) H 07/24/17 13:41 Urine Microscopic WBC 3-5 per hpf (0-3) H 07/24/17 13:41 Ur Squamous Epith Cells Many per lpf (None-Few) H 07/24/17 13:41 Consult Discharge Plan - Plan Referrals: Em Hector MD [Primary Care Provider] -
--- NOTE | 2017-07-26 14:42 | Discharge Summary ---
- NOTES TO OUTPATIENT PROVIDER Notes to Outpatient Provider: Spoke with the neurologist. She does not have a stroke. He states this is vertigo and she should follow up with ENT as an outpatient. Send her home on some meclizine as needed. He states she needs to ambulate more. Also needs to increase her fluid uptake. We will trial amitriptyline at bedtime to see if this helps with her symptoms. Orders not resulted at time of discharge: Pending orders 07/25/17 15:37 Urine tox screen [Drug Screen, Urine] [[facility]] Routine Date of Encounter: 07/26/17 Time of Encounter: 14:39 - Discharge Diagnosis (1) Dizziness Priority: Primary Status: Acute Comments: CTA, MRI negative. Neuro evaluation and is determined that she has vertigo. Continue meclizine as needed as an outpatient. Follow-up with ENT as an outpatient. Orthostatic blood pressures negative. Per neuro note: Patient's symptoms are likely peripheral in nature imaging studies negative especially no stenosis anterior and posterior circulation. Is possible it could be a migrainous phenomenon. She may be tried on amitriptyline 25 mg at bedtime as a preventive agent. Also suggested increased ambulation she should be up in the chair and also should be ambulating otherwise she would remain dizzy. From neurology standpoint patient is stable no clinical or imaging abnormalities to be suggestive of a stroke or TIA. Increased fluid intake and patient could be discharged from neurology standpoint (2) Chest pain Priority: Primary Status: Acute Comments: Patient was having burning sensation described as heartburn-like. She stated it lasted approximately one hour and resolved on its own. She stated she was short of breath during the event and she reported this as same since sensation as during her last CT.History of CAD, CT, CABG in 2007, HLD, hypertension EKG normal sinus rhythm with no ST elevation depression, aspirin 325 mg daily Oxygen to maintain sats greater than 92% CBC within normal limits Sodium 135 Glucose 152 Triglycerides 232, cholesterol 319, LDL 245, HDL 46 Resume home medications Echocardiogram as below Patient has been pain-free since admission Cardiac enzymes negative. EKG nor normal sinus rhythm with no ST elevation Aspirin 325 mg daily Now on room air Respiratory infection panel is negative. Echocardiogram obtained with LVEF 45-50%. Low normal to mild global reduction in LV systolic function. Mild left ventricular diastolic dysfunction. Normal right ventricular structure and function, mild mitral and tricuspid regurgitation. No evidence of PFO with agitated saline contrast. No pulmonary hypertension. Normal ECG findings Qualifiers: Chest pain type: unspecified Qualified Code(s): R07.9 - Chest pain, unspecified (3) DM (diabetes mellitus) Priority: Primary Status: Chronic Comments: Resume home medications and continue diabetic/cardiac diet Qualifiers: Diabetes mellitus type: type 2 Diabetes mellitus complication status: without complication Diabetes mellitus mcfp insulin use: without mcfp use Qualified Code(s): E11.9 - Type 2 diabetes mellitus without complications (4) HTN (hypertension) Priority: Primary Status: Acute Comments: Blood pressure including orthostatics are stable Continue home medications Qualifiers: Hypertension type: essential hypertension Qualified Code(s): I10 - Essential (primary) hypertension (5) HLD (hyperlipidemia) Priority: Primary Status: Acute Qualifiers: Hyperlipidemia type: unspecified Qualified Code(s): E78.5 - Hyperlipidemia , unspecified (6) URI (upper respiratory infection) Priority: Secondary Status: Chronic Comments: URI symptoms noted Respiratory infection panel negative Qualifiers: URI type: unspecified URI Qualified Code(s): J06.9 - Acute upper respiratory infection, unspecified Hospital course: Ms. Varghese is a 62 year old female with a PMH of CABG, coronary artery disease, diabetes, hyperlipidemia, and hypertension. She presented to [facility] with c/o dizziness and chest pain. She reported that she has been experiencing vertigo symptoms intermittently since May of 2017. In addition to that she also reported some gait ataxia over the last 2 weeks. She reported drifting to the right when she ambulated. Also she noted that 2 weeks ago she had difficulty with finding words and losing her train of thought. She was never diagnosed with a CVA and she denied any associated slurred speech, facial droop, or unilateral weakness. She reported some heartburn symptoms night before admission lasting approximately 1 hour and while having the heartburn she was also experiencing shortness of breath. She denied any radiation, pleuritic aspect, or exertional component. Additionally, she denied any ill contacts, constitutional symptoms, abdominal pain, extremity swelling/pain, or unusual bruising. She has been ambulating in the gomez with the nurse without difficulty. She has been tolerating her diet. She has had no further chest pain. Her neuro workup was negative for stroke. She needs to follow-up with ENT for an assessment of vertigo. Please refer to the details and assessment and plan for further details of this admission. Discharge discussed with: patient, nurse, databases computer consultant - Time Spent with Patient Total time spent providing and/or coordinating discharge services: Less than 30 minutes - Discharge Medications Prescriptions: Amitriptyline [Elavil] 25 mg PO HS 30 Days #30 tablet Meclizine [Antivert] 25 mg PO TID PRN 30 Days #90 tablet PRN Reason: Dizziness Home Medications: Albuterol Sulfate [Ventolin Hfa] 1 - 2 puff IH Q4-6H PRN 07/24/17 [History] Aspirin 325 mg PO DAILY 07/24/17 [History] Atorvastatin Calcium [Lipitor] 80 mg PO HS 07/24/17 [History] Citalopram Hydrobromide [Celexa] 40 mg PO DAILY 07/24/17 [History] Famotidine [Pepcid] 20 mg PO BID 07/24/17 [History] Gabapentin [Neurontin] 400 mg PO TID 07/24/17 [History] Metformin HCl [Glucophage] 1,000 mg PO BID 07/24/17 [History] Metoprolol [Lopressor] 25 mg PO BID 07/24/17 [History] Amitriptyline [Elavil] 25 mg PO HS 30 Days #30 tablet 07/26/17 [Rx] Meclizine [Antivert] 25 mg PO TID PRN 30 Days #90 tablet 07/26/17 [Rx] Allergies/Adverse Reactions: 3 Allergy/AdvReac Type Severity Reaction Status Date / Time sulfamethoxazole Allergy Hives Verified 07/24/17 12:49 [From Bactrim] trimethoprim [From Bactrim] Allergy Hives Verified 07/24/17 12:49 Date of admission: 07/24/17 18:49 Primary care physician: Em Hayes Discharging clinician: Joselin Palacios Anticipated date of discharge: 07/26/17 - Constitutional Vitals: Temp Pulse Resp BP Pulse Ox 97.8 F 64 15 126/82 96 07/26/17 11:56 07/26/17 11:56 07/26/17 11:56 07/26/17 11:56 02/25/18 11:56 General appearance: Present: cooperative, A&O X 3, pleasant, obese, answers questions appropriately - Head Head exam: Present: atraumatic, normocephalic - Eye Eye exam: Present: PERRL, conjuntiva pink, sclera anicteric Pupils: Present: PERRL - Neck Neck exam general surgery: Present: supple, trachea midline. Absent: lymphadenopathy - Respiratory Respiratory exam: Present: CTAB. Absent: accessory muscle use, chest wall tenderness, rales, rhonchi, wheezes - Cardiovascular Cardiovascular exam: Present: RRR, +S1, +S2. Absent: diastolic murmur, gallop, rubs, systolic murmur - GI/Abdominal GI/Abdominal exam: Present: normal bowel sounds, soft, no peritoneal signs. Absent: distended, tenderness - Extremities Exam Extremities exam: Present: warm, radial pulses palpable and symmetrical. Absent : calf tenderness, cyanotic, pedal edema - Neurological Exam Neurological exam: Present: alert, CN II-XII intact, normal gait, oriented X3, no focal deficits, strengths equal and symetr throughout. Absent: pronater drift, facial droop, speech deficit - Skin Skin exam: Present: dry, intact, normal color, warm - Patient Status Disposition: Home, Self-Care Condition: Fair Functional capacity at discharge: independent ambulation Overall status at discharge: patient is back to baseline - Discharge Instructions Follow Up With: Em Hector MD [Primary Care Provider] - Additional Instructions: Follow-up with ENT as an outpatient for the vertigo Increase activity level ambulate more Increase fluid intake - Diet and Activity Activity: resume usual activities as tolerated Diet: advance to your usual diet
[2017-07-26 15:28] VITALS: BP 104/68
[2017-07-26 17:13] LABS: Amphetamine Screen,Urine Negative ng/mL (Cutoff=1000); Barbiturate Screen,Urine Negative ng/mL (Cutoff=200); Benzodiazepines Screen,Urine Negative ng/mL (Cutoff=200); Cannabinoid Screen,Urine Negative ng/mL (Cutoff = 50); Cocaine Screen,Urine Negative ng/mL (Cutoff= 300); Opiate Screen,Urine Negative ng/mL (Cutoff=300); Phencyclidine Screen,Urine Negative ng/mL (Cutoff=25)
--- NOTE | 2017-07-27 06:28 | Electrocardiograph Report ---
[facility] [employer] Test Date: 2017-07-24 Pat Name: Jossue Varghese Department: 102 Room: 3B21 Gender: F Director [employer]: Darron : 1955 Requested By: Cristian Muñoz Order Number: [id number] Reading MD: Douglas Guzman DO Measurements Intervals Unity Rate: 67 P: 34 NE: 144 QRS: 25 QRSD: 87 T: 47 QT: 403 QTc: 418 Interpretive Statements SINUS RHYTHM NONSPECIFIC T-WAVE ABNORMALITY Electronically Signed On 07-27-2017 6:27:10 EST by Douglas Guzman DO
== END 2017-07-26 17:00 | disposition home or self-care (01) ==
LOC: EMEROO 12:41 → 3BNU 12:41
PROVIDERS: ADMIT Family Medicine; ATTEND Registered Nurse